=== PATIENT | male | born 1960 | race Caucasian/White ===

== ENCOUNTER 2023-10-09 08:15 | Outpatient (CLI) | payer OTHER ==
--- NOTE | 2023-10-09 13:19 | XRAY Report ---
PROCEDURE: Wrist 3+V RT INDICATIONS: PAIN IN RIGHT WRIST TECHNIQUE: 3 views of the wrist were acquired. COMPARISON: None. FINDINGS: Bones: No fractures or dislocations. No suspicious bony lesions. Soft tissues: No suspicious soft tissue calcifications or masses. IMPRESSION: No visualized acute fracture or dislocation. However, occult injury cannot be excluded. Recommend saad rt interval imaging follow-up in 7-10 days as clinically indicated for additional evaluation. Reviewed by: Rossy Ramsay MD on 10/09/2023 1:18 PM [facility] Approved by: Rossy Ramsay MD on 10/09/2023 1:18 PM [facility] Station ID: [id number]
== END 2023-10-09 08:30 | disposition home or self-care (01) ==
LOC: DI.N 08:15
PROVIDERS: ATTEND Physician Assistant Medical
DX: M25.531 Pain in right wrist (principal)

== ENCOUNTER 2023-12-05 15:31 | Outpatient (CLI) | payer OTHER ==
--- NOTE | 2023-12-05 16:26 | Sleep Patient Instructions ---
Sleep Center Visit Summary - Patient Visit Information Reason for Visit: Initial consult for evaluation of sleep disordered breathing and other sleep issues. - Patient Instructions Additional Instructions: You will be completing a sleep study, either an in-lab polysomnography (PSG) or home sleep study (HST). You will follow-up in the sleep care office after the sleep study is completed to hear the results and talk about therapy, if needed. You will be called by our office staff to schedule this appointment, but you may contact us with any questions. - Clinic Information Contact: [facility] [address] [place] [id number] [email or web address] T: [phone]
--- NOTE | 2023-12-05 16:35 | SLEEP CARE CONSULTATION ---
Information from patient questionnaire entered by Nathanael Mirza. I have reviewed and concur with the information entered by Nathanael Mirza. This document represents the service I personally performed and the decisions made by me, Neena Wang ARNP. History of Present Illness Service Date and Time: 12/05/2023 1531 Reason for Visit: New patient Chief Complaint: reports: Snoring, Observed pauses in breathing Date of Onset: 30YEARS Usual bedtime: 2200 Time it takes to fall asleep: 15MINS Snores at night: Yes Observed to quit breathing while asleep: Yes Sleeps alone due to snoring: Yes Number of times waking at night: 3-5 Reasons for waking at night: reports: Snoring, Gasping for air, Bathroom. denies: Choking Toss, Turn, or Twitch while sleeping: No (not sure, may- take gabapentin for RLS) Recalls having dreams: Yes Usually gets out of bed at: 0700 Feels refreshed in the morning: Yes (for the most part) Morning headache: No Sleepy or fatigued during the day: No Ever fallen asleep while driving: No Takes day naps: No Dreams during day naps: No Prior sleep studies: Yes Additional HPI information: I had the pleasure of seeing MARCO WHALEN today regarding the possibility of him having a sleep disorder. His current complaints are snoring and observed pauses in breathing. He says he snores all his life and he sleep separate from because his snoring is so loud. He was diagnosed about 20 years ago for sleep apnea and used a CPAP but he got many sinus infections from not keeping his equipment clean and he eventually stopped using it. About 10 years ago he had another study that show no sleep apnea. 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 He was visiting with an ENT and talking about snoring and daytime sleepiness, it was recommended he look into a sleep study again. - Parasomnia Symptoms Ever been unable to move upon waking from sleep: No Walks in sleep: No Talks in sleep: No Ever acted out dreams in sleep: No Ever felt weak in the knees when startled or emotional: No Bothered by creepy, crawly, restless sensations in legs: No Problems with memory or concentration: No Subjective Initial [place] Sleepiness Scale score: 6 (12/03/23) Past Medical History Past Medical History: reports: Hypertension, Arthritis, Coronary Heart Disease, Gout, Anemia (possible), Asthma, Other (Carotid occlusion; bundle branch block; current wrist pain; 3 knee replacements; cervical fusions; 2 carpal tunnel surgeries) Social History The patient's occupation is a RE. Patient is and lives in [place]. Have you smoked in the past 12 months: No Cigarettes per day (20/pack): 10 Years of smokin Quit date: 1979 Smoking Pack Years: 1.5 Alcohol use: Yes Alcohol amount and frequency: 1-3 DRINKS A MONTH Caffeine use: Yes Caffeine amount and frequency: 3 CUPS IN MORNINGS Family History Family history of sleep disordered breathing: Yes Family Hx Sleep Apnea: Mother: Snoring, Father: Snoring, Sleep apnea - Untreated, Sibling: Snoring, Sleep apnea - Untreated Allergies and Home Medications Known drug allergies: Yes ( LISTED) Drug allergies reviewed: Yes Home medication list reviewed: Yes (as listed) Allergy and home medication list: Allergies levofloxacin [From Levaquin] Allergy (Verified 12/03/23 15:48) Home Medications Aspirin [Adult Aspirin Regimen] See Rx Instructions .ROUTE .COMPLEX 12/05/23 [History] Cholecalciferol (Vitamin D3) [D3-5000] See Rx Instructions .ROUTE .COMPLEX 12/05/23 [History] Gabapentin [Neurontin] See Rx Instructions .ROUTE .COMPLEX 12/05/23 [History] Lisinopril [Zestril] See Rx Instructions .ROUTE .COMPLEX 12/05/23 [History] Magnesium Citrate and Oxide [Magnesium] See Rx Instructions .ROUTE .COMPLEX 12/05/23 [History] Mecobalamin [B12 Active] See Rx Instructions .ROUTE .COMPLEX 12/05/23 [History] Meloxicam See Rx Instructions .ROUTE .COMPLEX 12/05/23 [History] Multivitamin See Rx Instructions .ROUTE .COMPLEX 12/05/23 [History] Potassium Citrate [Potassium] See Rx Instructions .ROUTE .COMPLEX 12/05/23 [History] Rosuvastatin Calcium See Rx Instructions .ROUTE .COMPLEX 12/05/23 [History] Ubidecarenone [Co Q-10] See Rx Instructions .ROUTE .COMPLEX 12/05/23 [History] Zinc Glycinate [Zinc] See Rx Instructions .ROUTE .COMPLEX 12/05/23 [History] hydroCHLOROthiazide [Hydrochlorothiazide] See Rx Instructions .ROUTE .COMPLEX 12/05/23 [History] Review of Systems Weight gain over past 5 years: 30 Weight loss over past 5 years: 20 Cardiovascular: reports: high blood pressure Respiratory: reports: wheeze Gastrointestinal: denies: heartburn Urinary: reports: frequency Neurological: denies: headaches Psychiatric: denies: anxiety, depression Ear/Nose/Throat: reports: nasal congestion, wisdom teeth removed. denies: tonsillectomy Endocrine: reports: increased urination Musculoskeletal: reports: joint pain, neck pain, back pain, joint swelling, muscle pain or cramping, mobility problems Physical Exam Vital signs obtained and entered by: NATHANAEL Waters MA Blood Pressure: 157/76 (RIGHT ARM) Cuff size: regular Heart Rate: 84 O2 Saturation: 98 Height: 5 ft 10.25 in (PER PT) Weight: 255 lb 6.4 oz Body Mass Index: 36.3 BMI Classification: Obese Neck circumference: 19 Mouth and throat: narrow oropharynx Soft palate: long Hard palate: normal Uvula: normal Uvula visualization: 0% Mallampati Class IV Tongue: enlarged in size with teeth omer on lateral edges Tonsils: 2+ Neck: normal w/o lymphadenopathy or thyromegaly Heart: regular rate and rhythm Lungs: clear bilaterally Impression and Plan 1. Suspected Obstructive Sleep Apnea-Hypopnea Syndrome, as previously diagnosed and as suggested by a history of loud and irregular snoring, observed cessation of breath while asleep and gasping or choking in sleep. Narrow oropharynx and obesity are common predisposing factors for obstructive sleep apnea-hypopnea syndrome. I recommend proceeding to polysomnography to confirm the diagnosis and to assess severity. If the patient has significant sleep disordered breathing, a manual CPAP titration study will also be performed to find the optimal treatment pressure. I informed the patient of what the sleep studies involve and after some discussion, obtained agreement to proceed. The pathophysiology of obstructive sleep apnea-hypopnea syndrome was discussed with the patient and health risks of cardiovascular and cerebrovascular disease if not treated. Risks of drowsy driving discussed in detail and patient advised to avoid long distance driving and to breast puller at the first sign of drowsiness. Patient agreed to plan. * Schedule polysomnography. * Avoid long distance driving or driving when feeling sleepy. * Avoid alcohol, sedative and muscle relaxant around bedtime. * Attempt to lose weight. * Review instructions provided by trained office staff on how to prepare for the sleep study. * Return for follow-up after sleep study completed. Counseling Topics: Weight loss health impact Follow up with Sleep Care in: other (for sleep study results) Plan: PSG/HST Visit Type: In Office Time Spent with Patient (minutes): 32 Provider Statement: I spent 100% of the Face to Face Visit with the patient with greater than 50% spent counseling the patient and coordination of care.
[2023-12-05 16:58] VITALS: BP 157/76; O2SAT 98
== END 2023-12-05 15:32 | disposition home or self-care (01) ==
LOC: SC 15:31
PROVIDERS: ATTEND Nurse Practitioner Family
DX: G47.33 Obstructive sleep apnea (adult) (pediatric) (principal)
CPT/HCPCS: 99203; 99212

== ENCOUNTER 2024-01-02 12:29 | Outpatient (CLI) | payer OTHER | END 2024-01-02 12:30 | disposition home or self-care (01) | LOC: SC 12:29 | PROVIDERS: ATTEND Nurse Practitioner Family | DX: G47.33 Obstructive sleep apnea (adult) (pediatric) (principal); R09.02 Hypoxemia; I11.9 Hypertensive heart disease without heart failure; E66.9 Obesity, unspecified; Z68.42 Body mass index [BMI] 45.0-49.9, adult | CPT/HCPCS: 95806 ==

== ENCOUNTER 2024-01-29 15:06 | Outpatient (CLI) | payer OTHER ==
--- NOTE | 2024-01-29 15:31 | Sleep Patient Instructions ---
Sleep Center Visit Summary - Patient Visit Information Reason for Visit: Sleep study follow-up - Patient Instructions Additional Instructions: You are being started on CPAP therapy with pressure setting at 4-15 cmH2O. You will need to call the sleep care office to set up your follow up once you have your CPAP machine to check compliance and response to therapy at that time. You may call the office with any concerns about pressure feeling too low or too much for adjustment, if needed. You should contact DME supplier for any questions or concerns about mask or equipment. Please call office to schedule a follow up appointment in the sleep care office one month after obtaining new device. - Clinic Information Contact: [facility] [address] [place] [address] [email or web address] T: [phone]
--- NOTE | 2024-01-29 15:33 | SLEEP CARE CONSULTATION ---
Information from patient questionnaire entered by Negin Mirza. I have reviewed and concur with the information entered by Negin Mirza. This document represents the service I personally performed and the decisions made by , Neena Wang ARNP. History of Present Illness Service Date and Time: 01/29/2024 1506 Initial [place] Sleepiness Scale score: 6 (12/03/23) Current [place] Sleepiness Scale score: 7 (01/29/24) Additional HPI information: MARCO WHALEN returns for follow up and results of the recently performed home sleep study. The sleep study showed moderate obstructive sleep apnea with an average AHI of 17.3 and danial oxygen saturation of 57%. I explained the pathophysiology behind obstructive sleep apnea. We then spent quite a bit of time discussing different treatment options. For mild obstructive sleep apnea, surgery and oral appliance are alternatives to nasal CPAP therapy but in moderate or severe cases, nasal CPAP is the most effective and reliable treatment. I reviewed the impact of weight changes on sleep apnea and strongly recommended losing weight. After some discussion, the patient opted to go with the nasal CPAP therapy. Nasal autoCPAP set at 4-15 cmH20 will be ordered with rationale explained. A manual titration study will be ordered if unable to find optimal pressure with office adjustments. I explained how CPAP machine works and what to expect when using the machine. Using CPAP every night in order to get used to it was emphasized. Patient advised to put CPAP mask on before getting into bed so as not to fall asleep without CPAP. To assist acclimation to CPAP use, it could al so be used for a short time during day while reading or watching TV. The patient was instructed to call the CPAP supplier to discuss any mechanical problem that may occur. If the mask given is uncomfortable or is difficult to keep on through the night even with adjustment, contact the CPAP supplier as many will replace with another mask style if notified before 30 days. If snoring or perceives is not getting enough air or too much air from the machine, notify this office. Patient counseled not drink alcohol less than 4 hours before bedtime as it can increase snoring and apnea. Patient was cautioned about risks of drowsy driving until sleepiness symptoms resolve. Patient denies drowsy driving. Sleep Study - Results Type of Sleep Study: Home sleep study (COMPLETED 01/02/24) Prior sleep studies: Yes Polysomnography/Home Sleep Study results: Physician Impression: The quality of the study is good. The length of the study is adequate (> 240 minutes). Please also see the tabulated and graphic data. 1. Obstructive Sleep Apnea-Hypopnea (ICD-10 G47.33), moderate, with an AHI of 17.3/hr and danial SaO2 of 57%. During the study, the patient had 110 apneas (110 obstructive, 0 central, 0 mixed) and 19 hypopneas. The longest episode lasted 392.5 seconds. The respiratory events occurred slightly more frequently during supine sleep (supine AHI was 17.4 and non-supine, 12.50). 2. Hypoxemia (ICD-10 R09.02), severe, with the lowest oxygen saturation of 57 % and 101.8 minutes with SaO2 under 90%. Baseline oxygen saturation was normal (Average oxygen saturation was 92%). Allergies and Home Medications Known drug allergies: Yes (as listed) Drug allergies reviewed: Yes Home medication list reviewed: Yes (started on Amlodipine, stopped HCTZ) Allergy and home medication list: Allergies levofloxacin [From Levaquin] Allergy (Verified 01/26/24 14:05) Review of Systems Review of systems same as previous: Yes (NO CHANGE) Physical Exam Vital signs obtained and entered by: NEGIN Waters MA Blood Pressure: 125/76 (RIGHT ARM) Heart Rate: 78 O2 Saturation: 99 Height: 5 ft 10.25 in (PER PT) Weight: 260 lb 3.2 oz Body Mass Index: 37.0 BMI Classification: Obese Impression and Plan 1. Obstructive Sleep Apnea-Hypopnea Syndrome, moderate, with lowest oxygen sa turation of 57%. Obviously this is the cause of the patients symptoms of unrefreshed sleep, and excessive daytime sleepiness. Positive pressure therapy could benefit hypertension and cardiac disease (CHD). As mentioned above, the patient will be started on nasal autoCPAP therapy with pressure set at 4-15 cmH2 O. A manual titration study will be completed if unable to find optimal treatment pressure with office adjustments. Compliance guidelines also reviewed. A copy of compliance guidelines will be given for reference at check out. Because the apnea is more severe supine, I instructed to avoid sleeping supine using pillow positioning until able to start CPAP use. 2. Hypoxemia, severe, with a danial oxygen saturation of 57% and 101.8 minutes spent under 90%. The baseline oxygen saturation was normal with an average oxygen saturation of 92%. 3. Obesity, unspecified. Currently patients BMI is 37. Obesity increases the risk of apnea, CPAP pressure requirements and overall health risks especially cardiovascular and diabetes. Thus patient is advised to lose weight. * Nasal auto CPAP therapy, pressure at 4-15 cm H2O. * Attempt to lose weight. * Avoid alcohol consumption near bedtime. * Avoid supine sleep until using CPAP. * The patient is again cautioned about driving until sleepiness completely resolves. * Return one month after CPAP obtained. I will assess response to therapy and compliance at that time. Counseling Topics: Weight loss health impact Prescriptions: Auto CPAP Plan: start CPAP and compliance follow up Visit Type: In Office Time Spent with Patient (minutes): 21 Provider Statement: I spent 100% of the Face to Face Visit with the patient with greater than 50% spent counseling the patient and coordination of care.
[2024-01-29 15:39] VITALS: BP 125/76; O2SAT 99
== END 2024-01-29 15:07 | disposition home or self-care (01) ==
LOC: SC 15:06
PROVIDERS: ATTEND Nurse Practitioner Family
DX: G47.33 Obstructive sleep apnea (adult) (pediatric) (principal); R09.02 Hypoxemia; E66.9 Obesity, unspecified; Z68.37 Body mass index [BMI] 37.0-37.9, adult
CPT/HCPCS: 99212; 99213

== ENCOUNTER 2024-03-26 09:04 | Outpatient (CLI) | payer OTHER ==
--- NOTE | 2024-03-26 08:50 | SLEEP CARE CONSULTATION ---
Information from patient questionnaire entered by Negin Mirza. I have reviewed and concur with the information entered by Negin Mirza. This document represents the service I personally performed and the decisions made by , Neena Wang ARNP. History of Present Illness Service Date and Time: 03/26/2024 0840 Previous diagnosis: Moderate, Obstructive Sleep Apnea-Hypopnea Syndrome AHI: 17.3 (01/02/24) Reason for follow up: first compliance Equipment type: CPAP (RESMED AIRSENSE 11 S/U 02/10/24) Equipment obtained from: [email or web address] (getting supplies) Mask style: Nasal pillows Mask brand: Resmed (AirFit [id number]) Backup mask available: No Last cushion change: 1 month Prior sleep studies: Yes Type of Sleep Study: Home sleep study (COMPLETED 01/02/24) HPI additional information: MARCO WHALEN was diagnosed to have moderate, AHI 17.3, obstructive sleep apnea- hypopnea syndrome and returns via video appointment today for CPAP therapy first compliance follow-up. Sleep Study - Results Type of Sleep Study: Home sleep study (COMPLETED 01/02/24) Prior sleep studies: Yes CPAP Compliance Data - Data Reviewed with Patient Average duration of nightly device use: 6 HRS 33 MINS Compliance rate %: 83 (02/10/24-03/10/24; 25/30 days used) Current pressure setting (cmH2O): 4-15 (median 5.2, avg 8, max 9.6) Average residual AHI: 0.4 Central apnea: 0.1 Obstructive apnea: 0.2 Hypopnea: 0.1 Average large leak: 0 L/min Subjective Missed days of use due to: reports: travel ([employer] fishing trip and forgot) Patient concerns: denies: aerophagia, mask discomfort, air blowing in eyes, mask leak noise, condensation in mask/hose, nasal congestion, dry mouth, nose, throat, epistaxis Observed to snore while using device: No Current pressure setting perceived as: too low (at the onset of tx) On therapy, patient: reports: sleeping better, awakening more refreshed, being more awake and alert during the day, more rested overall. denies: drowsiness while driving Initial [place] Sleepiness Scale score: 6 (12/03/23) Current [place] Sleepiness Scale score: 9 Allergies and Home Medications Known drug allergies: Yes (as listed) Drug allergies reviewed: Yes Home medication list reviewed: Yes (no changes) Allergy and home medication list: Allergies levofloxacin [From Levaquin] Allergy (Verified 03/24/24 08:30) Review of Systems Review of systems same as previous: Yes (no changes) Physical Exam Vital signs obtained and entered by: NEENA MIRAMONTES Height: 5 ft 10.25 in (PER PT) Weight: 250 lb (Per pt) Body Mass Index: 35.6 BMI Classification: Obese Impression and Plan 1. Obstructive Sleep Apnea-Hypopnea Syndrome, moderate, with good treatment compliance and good apnea control. On CPAP therapy, the patient has better sleep quality and is more rested overall. He has significant improvement of his sleep apnea and is satisfied with current therapy. He has no issues or complaints. He has used is consistently since starting and only missed when he forgot his machine while on a fishing trip. The patients pressure will be changed to autoCPAP 6-9 cmH20 to reflect pressure being used. Patient advised to contact me if pressure change is uncomfortable so that it can be adjusted. Goals for apnea control discussed. Patient's apnea severity and rationale for treatment to reduce apnea, improve sleep quality and reduce cardiovascular and cerebrovascular events was reviewed. I also reviewed the benefit of consistent device use of CPAP for hypertension, cardiac disease (CHD). 2. Obesity, unspecified. Currently patients BMI is 35.6. Obesity increases the risk of apnea, CPAP pressure requirements and overall health risks especially cardiovascular and diabetes. Thus patient is advised to lose weight. * Change auto CPAP pressure to 6-9 cmH2O * Notify me if snoring with mask or feeling that the pressure is too much or too little * Attempt to lose weight * Call this office if any problems using CPAP * Return for follow up in 1-2 months, or sooner if concerns arise Adjust device pressure to (cmH2O): 6-9 Counseling Topics: Spare mask, Weight loss health impact Follow up with Sleep Care in: 1-2 months Visit Type: Telehealth Video Video Type: Doximity Patient Location: Home Location of Provider: Office Patient agrees and consents to this telehealth visit type: Yes Patient agrees to have their insurance billed: Yes Time Spent with Patient (minutes): 15 Provider Statement: I spent 100% of the Telehealth Video Call with the patient with greater than 50% spent counseling the patient and coordination of care.
== END 2024-03-26 09:05 | disposition home or self-care (01) ==
LOC: SC 09:04
PROVIDERS: ATTEND Nurse Practitioner Family
DX: G47.33 Obstructive sleep apnea (adult) (pediatric) (principal); E66.9 Obesity, unspecified; Z68.35 Body mass index [BMI] 35.0-35.9, adult

== ENCOUNTER 2024-05-13 08:37 | Outpatient (CLI) | payer OTHER ==
--- NOTE | 2024-05-13 08:49 | SLEEP CARE CONSULTATION ---
Information from patient questionnaire entered by Callie Castano. I have reviewed and concur with the information entered by Callie Castano. This document represents the service I personally performed and the decisions made by , Neena Wang ARNP. History of Present Illness Service Date and Time: 05/13/2024 0840 Previous diagnosis: Moderate, Obstructive Sleep Apnea-Hypopnea Syndrome AHI: 17.3 (01/02/24) Reason for follow up: other (6-Week F/U -Pressure change) Equipment type: CPAP (Airsense 11, s/u 02/2024) Equipment obtained from: [employer] ([employer]) Mask style: Nasal pillows (medium cushion) Backup mask available: No Last cushion change: 1.5 weeks Prior sleep studies: Yes Type of Sleep Study: Home sleep study (COMPLETED 01/02/24) HPI additional information: VEL WHALEN was diagnosed to have moderate, AHI 17.3, obstructive sleep apnea- hypopnea syndrome and returned today for CPAP therapy six week after pressure change follow-up. Sleep Study - Results Type of Sleep Study: Home sleep study (COMPLETED 01/02/24) Prior sleep studies: Yes CPAP Compliance Data - Data Reviewed with Patient Average duration of nightly device use: 5 h 58 min Compliance rate %: 90 (30 days used) Current pressure setting (cmH2O): 6 - 9 Average residual AHI: 0.2 Central apnea: 0.1 Obstructive apnea: 0.1 Hypopnea: 0 Average large leak: 0.3 L/min Subjective Missed days of use due to: reports: other (feel asleep) Patient concerns: reports: mask discomfort (minor), mask leak noise (seldomly), dry mouth, nose, throat (occasionally dry mouth and throat). denies: aerophagia, air blowing in eyes, condensation in mask/hose, nasal congestion, epistaxis Observed to snore while using device: No Current pressure setting perceived as: comfortable On therapy, patient: reports: sleeping better, awakening more refreshed, being more awake and alert during the day, more rested overall. denies: drowsiness while driving Initial [place] Sleepiness Scale score: 6 (12/03/2023) Current [place] Sleepiness Scale score: 2 (05/13/2024) Allergies and Home Medications Known drug allergies: Yes (as listed) Drug allergies reviewed: Yes Home medication list reviewed: Yes (no changes) Allergy and home medication list: Allergies levofloxacin [From Levaquin] Allergy (Verified 03/24/24 08:30) Review of Systems Review of systems same as previous: Yes (no changes) Physical Exam Vital signs obtained and entered by: Neena Rachel NP Height: 5 ft 10.5 in (PER PT) Weight: 252 lb (Per Pt) Body Mass Index: 35.6 BMI Classification: Obese Impression and Plan 1. Obstructive Sleep Apnea-Hypopnea Syndrome, moderate, with good treatment compliance and good apnea control. On CPAP therapy, the patient has better sleep quality and is more rested overall. Vel has significant improvement of his sleep apnea and is satisfied with current CPAP therapy. He has minor issues with the mask and overall feels comfortable with CPAP therapy. Patient's apnea severity and rationale for treatment to reduce apnea, improve sleep quality and reduce cardiovascular and cerebrovascular events was reviewed. I also reviewed the benefit of consistent device use of CPAP for hypertension, cardiac disease (CHD). 2. Obesity, unspecified. Currently patients BMI is 35.6. Obesity increases the risk of apnea, CPAP pressure requirements and overall health risks especially cardiovascular and diabetes. Thus patient is advised to lose weight. * Continue auto CPAP pressure at 6-9 cmH2O * Notify me if snoring with mask or feeling that the pressure is too much or too little * Attempt to lose weight * Call this office if any problems using CPAP * Return for follow up in 3 months, or sooner if concerns arise Counseling Topics: Spare mask, Weight loss health impact Follow up with Sleep Care in: 3 months Visit Type: Telehealth Video Video Type: [place] Patient Location: Home Location of Provider: Office Patient agrees and consents to this telehealth visit type: Yes Patient agrees to have their insurance billed: Yes Time Spent with Patient (minutes): 12 Provider Statement: I spent 100% of the Telehealth Video Call with the patient with greater than 50% spent counseling the patient and coordination of care.
== END 2024-05-13 08:38 | disposition home or self-care (01) ==
LOC: SC 08:37
PROVIDERS: ATTEND Nurse Practitioner Family
DX: G47.33 Obstructive sleep apnea (adult) (pediatric) (principal); E66.9 Obesity, unspecified; Z68.35 Body mass index [BMI] 35.0-35.9, adult